=== PATIENT | male | born 1990 ===

== ENCOUNTER 2020-05-28 04:41 | Emergency (ER) | payer OTHER, BC ==
[2020-05-28] MEDS ORDERED: Ibuprofen 200 MG TAB ONE (04:49)
[2020-05-28] MEDS ORDERED: Acetaminophen 500 MG TAB ONE (04:49)
== END 2020-05-28 05:00 | disposition home or self-care (01) ==
LOC: CSHERS 04:41
DX: S06.0X9A Concussion with loss of consciousness of unspecified duration, initial encounter (principal); S00.83XA Contusion of other part of head, initial encounter; Y04.8XXA Assault by other bodily force, initial encounter
CPT/HCPCS: 99283